=== PATIENT | male | born 1960 | race Caucasian/White ===

== ENCOUNTER 2020-12-17 09:17 | Day surgery (SDC) | payer OTHER ==
[~2020-12-17] VITALS: Ht 175.3 cm; Wt 92.1 kg
[~2020-12-17 09:17] MED LIST: Coumadin10 MG PO; PROP60 PO; SUMA25 PO; TUMS500 MG PO; WARF7.5 PO
--- NOTE | 2020-12-17 10:03 | NUR ---
Ambulatory in Day SurgeryPatient states colon prep results clear. History, Chart, Medications and Allergies reviewed before start of procedure.Lungs clear T/O to Auscultation. Patient confirms NPO status and agrees with scheduled surgery.
--- NOTE | 2020-12-17 10:24 | NUR ---
12/17/20 Enriqueta Pierre History, Chart, Medications and Allergies reviewed before start of procedure. Patient confirms NPO status and agrees with scheduled surgery. 3-LEAD EKG REVIEWED WITH PHYSICIAN PRIOR TO START OF PROCEDURE. MONITOR INTACT WITH CONTINUOUS PULSE OXIMETRY AND INTERMITTENT BP. PATIENT DETERMINED TO BE ASA APPROPRIATE FOR PROPOFOL SEDATION PRIOR TO START OF PROCEDURE BY .
--- NOTE | 2020-12-17 11:00 | NUR ---
CALLED PHARMACY TALKED WITH UMER, I HAD PULLED PROPOFOL ON WRONG ACC#, BUT CORRECT PT. HE INSTRUCTED ME TO RETURN TO WRONG ACCOUNT, THEN PULL FROM CORRECT ACCOUNT, BUT THEN THE COUNTS WOULD BE OFF, HE SAID IT IS FINE. HE WOULD CHANGE IT IF NEEDED. SPENCER PINZON RN WITNESSED RETURN.
--- NOTE | 2020-12-17 11:04 | NUR ---
PT TOLERATING PO FLUIDS/SOLIDS. Discharge instructions reviewed with patient. Patient verbalizes understanding. Copy given to patient to take home.
--- NOTE | 2020-12-17 11:20 | NUR ---
Discharged via wheelchair to private car for ride home.
== END 2020-12-17 11:31 | disposition home or self-care (01) ==
LOC: ORSCMMR 09:17 → ORD 10:00 → ORSCMMR 11:31
PROVIDERS: Internal Medicine Gastroenterology
PROC: 0DBN8ZX Excision of Sigmoid Colon, Via Natural or Artificial Opening Endoscopic, Diagnostic (ICD-10-PCS; principal; 2020-12-17 10:00)
DX: Z12.11 Encounter for screening for malignant neoplasm of colon (principal); Z86.010 Personal history of colon polyps; K63.5 Polyp of colon; Z86.718 Personal history of other venous thrombosis and embolism; Z79.01 Long term (current) use of anticoagulants; Z79.899 Other long term (current) drug therapy; K21.9 Gastro-esophageal reflux disease without esophagitis
CPT/HCPCS: 88305; J7120

== ENCOUNTER → 2022-08-17 | Outpatient (CLI) | payer OTHER | END | disposition home or self-care (01) | LOC: LAB SHORT 14:00 | DX: E04.9 Nontoxic goiter, unspecified (principal) | CPT/HCPCS: 84443 ==

== ENCOUNTER → 2022-11-18 | Outpatient (CLI) | payer OTHER ==
[2022-11-18 21:42] LABS: Free Thyroxine 1.03 ng/dL (0.70-1.60)
[2022-11-18 21:44] LABS: Thyroid Stimulating Hormone 3.65 uIU/mL (0.360-4.800)
== END | disposition home or self-care (01) ==
LOC: LAB SHORT 10:00 → LAB 10:00
PROVIDERS: Family Medicine
DX: E04.9 Nontoxic goiter, unspecified (principal)
CPT/HCPCS: 84439; 84443

== ENCOUNTER → 2023-06-24 | Outpatient (CLI) | payer OTHER | END | disposition home or self-care (01) | LOC: LAB 19:25 → LAB SHORT 19:25 | PROVIDERS: Urology | DX: C61 Malignant neoplasm of prostate (principal) | CPT/HCPCS: 84153 ==

== ENCOUNTER → 2023-07-22 | Outpatient (CLI) | payer OTHER | END | disposition home or self-care (01) | LOC: LAB SHORT 15:00 → LAB 15:00 | DX: J02.9 Acute pharyngitis, unspecified (principal) | CPT/HCPCS: 87081 ==

== ENCOUNTER → 2024-01-03 | Outpatient (CLI) | payer OTHER ==
[2024-01-03 19:32] LABS: BASOPHILS ABSOLUTE AUTO 0.05 K/mm3 (0.00-0.23); BASOPHILS PERCENT AUTO 1 % (0-2); EOSINOPHILS PERCENT AUTO 5 % (0-6); Hematocrit 38.7 % (37.0-53.0); IMMATURE GRAN ABSOLUTE AUTO 0.02 K/mm3 (0.00-0.10); IMMATURE GRAN PERCENT AUTO 1 % (0-1); LYMPHOCYTES ABSOLUTE AUTO 1.06 K/mm3 (0.84-5.20); LYMPHOCYTES PERCENT AUTO 25 % (21-46); MONOCYTES ABSOLUTE AUTO 0.61 K/mm3 (0.16-1.47); MONOCYTES PERCENT AUTO 14 % (4-13); Mean Corpuscular HGB 30.5 pg (26.0-34.0); Mean Corpuscular HGB Conc 33.6 g/dL (31.5-36.5); Mean Corpuscular Volume 91 fL (80-100); Mean Platelet Volume 10.2 fL (9.1-12.4); NEUTROPHILS ABSOLUTE AUTO 2.39 K/mm3 (1.96-9.15); NEUTROPHILS PERCENT AUTO 55 % (41-73); Platelet Count 240 K/mm3 (150-400); RDW Coefficient Variation 13.2 % (11.7-14.2); RDW Standard Deviation 43.7 fL (35.1-46.3); Red Blood Cell Count 4.26 M/mm3 (4.30-5.90); White Blood Cell Count 4.33 K/mm3 (4.00-11.30)
[2024-01-03 19:51] LABS: Albumin, Blood 4.2 g/dL (3.4-5.0); Albumin/Globulin Ratio 1.2 (0.8-1.8); Bilirubin, Total 0.3 mg/dL (0.1-1.0); Bun/Creatinine Ratio 14.9 (12.0-20.0); Calcium, Blood 9.2 mg/dL (8.5-10.1); Creatinine, Blood 0.88 mg/dL (0.60-1.20); Globulin, Blood 3.6 g/dL (2.2-4.0); Potassium, Blood 3.9 mmol/L (3.5-5.5); Total Protein, Blood 7.8 g/dL (6.4-8.2)
== END | disposition home or self-care (01) ==
LOC: LAB SHORT 18:52 → LAB 18:52
PROVIDERS: Nurse Practitioner Family
DX: N23 Unspecified renal colic (principal)
CPT/HCPCS: 80053; 85025

== ENCOUNTER → 2025-01-11 | Outpatient (CLI) | payer OTHER ==
[2025-01-18 05:41] LABS: ESTRADIOL BY MASS SPEC 15.9 pg/mL (10.0-42.0); ESTROGENS TOTAL CALCULATION 52.8 pg/mL (19.0-69.0); ESTRONE BY MASS SPEC 36.9 pg/mL (9.0-36.0)
[2025-01-19 10:25] LABS: TESTOSTERONE, FREE BY DIALYSIS 29.5 pg/mL (47.0-244.0); TESTOSTERONE, TOTAL MASS SPEC 296.2 ng/dL (300.0-720.0)
== END ==
LOC: LAB SHORT 18:57 → LAB 18:57
PROVIDERS: Nurse Practitioner Family
DX: C61 Malignant neoplasm of prostate (principal); N62 Hypertrophy of breast
CPT/HCPCS: 82671; 83036; 84402; 84403

== ENCOUNTER → 2025-04-30 | Outpatient (CLI) | payer OTHER ==
[2025-04-30 20:08] LABS: Ferritin, Serum 89 ng/mL (26-388); PSA, %Free 4.9 %; PSA, Free 0.038 ng/mL; Prostate Specific Antigen 0.783 ng/mL (0.000-4.000); Total Iron Binding Capacity 294 ug/dL (250-450)
== END ==
LOC: LAB 18:59 → LAB SHORT 18:59
PROVIDERS: Nurse Practitioner Family
DX: C61 Malignant neoplasm of prostate (principal); D64.9 Anemia, unspecified; N62 Hypertrophy of breast
CPT/HCPCS: 82728; 83540; 83550; 84153; 84154; 87086

== ENCOUNTER → 2025-06-06 | Outpatient (CLI) | payer OTHER | LOC: LAB 19:27 | DX: Z79.899 Other long term (current) drug therapy (principal) ==

== ENCOUNTER → 2025-06-12 | Outpatient (CLI) | payer OTHER | LOC: LAB SHORT 18:22 → LAB 18:22 | DX: R30.9 Painful micturition, unspecified (principal) | CPT/HCPCS: 87086 ==